=== PATIENT | female | born 1955 | race Caucasian/White ===

== ENCOUNTER 2019-07-09 09:00 | Outpatient (CLI) | payer OTHER, SELFPAY ==
--- NOTE | 2019-07-09 09:03 | MM_ITS ---
WS: [id number] BILATERAL SCREENING DIGITAL MAMMOGRAM WITH CAD HISTORY: SCREENING COMPARISON: 06/09/2018, 04/15/2017, 07/30/2013 and 07/30/2014 Bilateral CC and MLO views submitted. Computer aided detection analyzed. Breast composition: The breasts are heterogeneously dense, which may obscure small masses. No suspici ous masses, microcalcifications or architectural distortion. Dense asymmetric soft tissue in the uppe r outer quadrants of each breast seen on the MLO projections is stable. Benign calcifications. MM/[place] [id number] IMPRESSION: BI-RADS: 2-Benign FOLLOW UP: 1 Year Follow-up
== END 2019-07-09 09:01 | disposition home or self-care (01) ==
LOC: RADSHAW 09:00
PROVIDERS: Family Provider Family Medicine; PCP Nurse Practitioner; Visit Provider Nurse Practitioner
DX: Z12.31 Encounter for screening mammogram for malignant neoplasm of breast (principal)
CPT/HCPCS: 77067

== ENCOUNTER 2020-08-05 15:11 | Outpatient (CLI) | payer OTHER, SELFPAY ==
--- NOTE | 2020-08-05 15:16 | MM_ITS ---
WS: [id number] BILATERAL SCREENING DIGITAL MAMMOGRAM WITH CAD HISTORY: SCREENING COMPARISON: 2019, 07/30/2014 and 04/15/2017 Bilateral CC and MLO views submitted. Computer aided detection analyzed. Breast composition: The breasts are heterogeneously dense, which may obscure small masses. No suspici ous masses, microcalcifications or architectural distortion. Benign stable calcifications. MM/[place] [id number] IMPRESSION: BI-RADS: 2-Benign FOLLOW UP: 1 Year Follow-up
--- NOTE | 2020-08-05 16:05 | XR_ITS ---
WS: [id number] SCREENING DEXA SCAN [employer] CLINICAL INFORMATION: AGE-RELATED OSTEOPOROSIS WITHOUT CURRENT PATHOLOGICAL FRACTU COMPARISON: 2019 FINDINGS: The L1-L4 bone mineral density measures 0.984 g/cm2. This corresponds to a T score score of -1.6 and Z score of 0.1. Left femoral neck bone mineral density measures 0.872 g/cm2. This corresponds to a T score of -1.1 an d Z score of 0.2. Right femoral neck bone mineral density measures 0.865 g/cm2. This corresponds to a T score -1.1of an d Z score of 0.2. Mean femoral neck bone mineral density measures 0.868 g/cm2. This corresponds to a T score of -1.1 an d Z score of 0.2. XR/XR DEXA axial skeleton* [id number] IMPRESSION: Osteopenia Patient's FRAX calculated 10 year probability for major osteoporotic fracture i s 15.8 % and osteoporotic hip fracture is 2.4%.
== END 2020-08-05 15:12 | disposition home or self-care (01) ==
LOC: RADSHAW 15:15
PROVIDERS: PCP Nurse Practitioner; Visit Provider Nurse Practitioner
DX: Z12.31 Encounter for screening mammogram for malignant neoplasm of breast (principal); M81.0 Age-related osteoporosis without current pathological fracture; M85.89 Other specified disorders of bone density and structure, multiple sites
CPT/HCPCS: 77067; 77080

== ENCOUNTER 2021-08-31 13:27 | Outpatient (CLI) | payer MEDICARE, OTHER, SELFPAY ==
--- NOTE | 2021-08-31 13:37 | MM_ITS ---
WS: [id number] BILATERAL 3D TOMOSYNTHESIS DIGITAL SCREENING MAMMOGRAPHY WITH CAD CLINICAL INFORMATION: SCREENING HISTORY: Screening mammogram. No current complaints. COMPARISON: August 05, 2020 TECHNIQUE: Bilateral CC and MLO views. FINDINGS: The breasts are composed of heterogeneous fibroglandular density tissue, which can limit the detectio n of small underlying mass lesions. Punctate and lucent centered calcifications. No suspicious mass, asymmetry, calcifications, or architectural distortion. No evidence of malignancy. MM/[place] [id number] IMPRESSION: BI-RADS: 2-Benign FOLLOW UP: 1 Year Follow-up Recommend return to annual screening mammography.
== END 2021-08-31 13:28 | disposition home or self-care (01) ==
PROVIDERS: PCP Nurse Practitioner; Visit Provider Nurse Practitioner
DX: Z12.31 Encounter for screening mammogram for malignant neoplasm of breast (principal)
CPT/HCPCS: 77063; 77067

== ENCOUNTER 2022-09-02 07:29 | Outpatient (CLI) | payer MEDICARE, OTHER, SELFPAY ==
--- NOTE | 2022-09-02 07:44 | MM_ITS ---
WS: [id number] BILATERAL SCREENING DIGITAL TOMOSYNTHESIS MAMMOGRAM WITH CAD HISTORY: SCREENING COMPARISON: 08/31/2021, 08/05/2020 and 07/09/2019 Bilateral CC and MLO views with tomosynthesis and synthetic mammography submitted. Computer aided det ection analyzed. Breast composition: The breasts are heterogeneously dense, which may obscure small masses. No suspici ous masses, microcalcifications or architectural distortion. Focal asymmetry 12:00 posterior RIGHT br east is similar to multiple prior exams. Benign calcifications LEFT breast. MM/[place] [id number] IMPRESSION: BI-RADS: 2-Benign FOLLOW UP: 1 Year Follow-up
== END 2022-09-02 07:30 | disposition home or self-care (01) ==
LOC: RAD 07:33
PROVIDERS: PCP Nurse Practitioner; Visit Provider Nurse Practitioner
DX: Z12.31 Encounter for screening mammogram for malignant neoplasm of breast (principal)
CPT/HCPCS: 77063; 77067

== ENCOUNTER 2022-10-14 14:16 | Outpatient (CLI) | payer MEDICARE, OTHER, SELFPAY ==
--- NOTE | 2022-10-14 14:24 | XR_ITS ---
WS: [id number] SCREENING DEXA SCAN [employer] CLINICAL INFORMATION: ASYMPTOMATIC MENOPAUSAL STATE COMPARISON: 2020 FINDINGS: The L1-L4 bone mineral density measures 0.966 g/cm2. This corresponds to a T score score of -1.8 and Z score of 0.0. Left femoral neck bone mineral density measures 0.880 g/cm2. This corresponds to a T score of -1.0 an d Z score of 0.4. Right femoral neck bone mineral density measures 0.855 g/cm2. This corresponds to a T score -1.2of an d Z score of 0.2. Mean femoral neck bone mineral density measures 0.867 g/cm2. This corresponds to a T score of -1.1 an d Z score of 0.3. XR/XR DEXA axial skeleton* [id number] IMPRESSION: Osteopenia lumbar spine. Osteopenia femoral necks. Patient's FRAX calculated 10 year probability for major osteoporotic fracture i s 15.8 % and osteoporotic hip fracture is 2.2%. Since 2020 examination: Bone mineral density in the lumbar spine has decreased -1.8% Bone mineral density in the femoral necks has decreased -0.1%
== END 2022-10-14 14:17 | disposition home or self-care (01) ==
LOC: RAD 14:17
PROVIDERS: PCP Nurse Practitioner; Visit Provider Nurse Practitioner
DX: Z13.820 Encounter for screening for osteoporosis (principal); Z78.0 Asymptomatic menopausal state; M85.89 Other specified disorders of bone density and structure, multiple sites
CPT/HCPCS: 77080

== ENCOUNTER 2023-09-05 10:33 | Outpatient (CLI) | payer MEDICARE, OTHER, SELFPAY ==
--- NOTE | 2023-09-05 11:23 | MM_ITS ---
WS: [id number] SCREENING DIGITAL BREAST TOMOSYNTHESIS MAMMOGRAM WITH CAD HISTORY: SCREENING COMPARISON: 09/02/2022, 08/31/2021 and 07/09/2019 Bilateral CC and MLO with tomosynthesis and synthetic mammography submitted. Computer aided detection analyzed. Breast composition: The breasts are heterogeneously dense, which may obscure small masses. Increasing asymmetry in the posterior central RIGHT breast seen only on the CC projection. This may be superimp osed fibroglandular soft tissue. Benign calcifications LEFT breast. MM/[place] [id number] IMPRESSION: BI-RADS: 0-Incomplete: Need additional imaging evaluation FOLLOW UP: Need Additional Imaging RIGHT breast: Spot compression views (CC ). True ML. Ultrasound to follow if ab normality persists.
== END 2023-09-05 10:34 | disposition home or self-care (01) ==
LOC: RAD 10:33
PROVIDERS: PCP Nurse Practitioner; Visit Provider Nurse Practitioner
DX: Z12.31 Encounter for screening mammogram for malignant neoplasm of breast (principal); R92.30 Dense breasts, unspecified
CPT/HCPCS: 77063; 77067

== ENCOUNTER 2023-09-27 13:06 | Outpatient (CLI) | payer MEDICARE, OTHER, SELFPAY ==
--- NOTE | 2023-09-27 13:17 | MM_ITS ---
WS: [id number] ADDITIONAL VIEWS RIGHT MAMMOGRAM WITH DIGITAL BREAST TOMOSYNTHESIS. RIGHT BREAST ULTRASOUND HISTORY: ABNORMAL MAMMO COMPARISON: 09/05/2023, 09/02/2022 and 08/31/2021 RIGHT MAMMOGRAM: Spot compression views and true ML with digital breast tomosynthesis and SM. Asymmetry persists in the posterior RIGHT breast against the chest wall but appears less masslike. Th ere is focal asymmetry towards the upper portion of the breast. This area will be further evaluated b y ultrasound. No suspicious masses. RIGHT BREAST ULTRASOUND 2-D and color Doppler imaging submitted. There is a small cyst at 12:00, 1 cm from the nipple measuring 7 x 6 x 4 mm. No suspicious mass or sh adowing. MM/[place] [id number] IMPRESSION: BI-RADS: 2-Benign FOLLOW UP: 1 Year Follow-up Return to annual screening mammography.
== END 2023-09-27 13:07 | disposition home or self-care (01) ==
LOC: RAD 13:07
PROVIDERS: PCP Nurse Practitioner; Visit Provider Nurse Practitioner Family
DX: R92.8 Other abnormal and inconclusive findings on diagnostic imaging of breast (principal); N60.01 Solitary cyst of right breast
CPT/HCPCS: 76642; 77061; G0279

== ENCOUNTER → 2024-05-30 09:03 | Outpatient (BNVA) | payer MEDICARE, OTHER, SELFPAY | PROVIDERS: PCP Nurse Practitioner; Visit Provider Podiatrist Foot & Ankle Surgery | DX: M79.672 Pain in left foot; M21.612 Bunion of left foot | CPT/HCPCS: 73630; 99204 ==

== ENCOUNTER 2024-06-29 05:52 | Day surgery (SDC) | payer MEDICARE, OTHER, SELFPAY ==
[2024-06-29] VITALS (11 sets, daily range): BP systolic 115–171; BP diastolic 73–86; PULSE 60–89; RESP 16–18; TEMP 36.1–36.2; O2SAT 95–100; BMI 21.4
--- NOTE | 2024-06-29 06:14 | P.OP_ITS ---
Operative Report Date of procedure: June 29, 2024 Pre-op diagnosis: Bunion, left M21.612 Post-op diagnosis: Bunion, left M21.612 Procedure done: Left first metatarsal phalangeal joint fusion. CPT code 87253 Implants: 3-0 Vicryl, 4-0 Vicryl, 4 nylon, [place] first MTP plate with 2.7 millimeter screws distally and 3.5 millimeter screws proximally Surgeon: Jairo Salmeron DPM Estimated blood loss: 2 mL 38 IV fluids: See intraoperative documentation Urine output: See intraoperative documentation Complications: None Brief History: 68-year-old female with a history of left foot bunion presenting with persistent foot pain impacting her quality of life and activity level. The bunion and associated deformities, including a Tailor's bunion and hammer toe, have been present for five years and are worsening. The primary considerations include surgical interventions to correct the structural deformities and alleviate pain. The symptoms and deformities indicate potential surgical options, such as the Lapidus bunionectomy or a first metatarsophalangeal joint fusion, each carrying distinct therapeutic outcomes. 1. Bunion Left Foot The discussion included a detailed review of surgical options to address the severe bunion deformity. The Lapidus procedure was suggested due to its ability to correct severe deformities by realigning and fusing the metatarsal joint, possibly incorporating titanium hardware. Alternatively, a fusion of the first metatarsophalangeal joint was considered for direct correction and pain mitigation, albeit resulting in limited mobility at that joint. The patient was advised to weigh the benefits and recovery timelines of both options. 2. Bunionette of left foot M21.622 The significance of the Tailor's bunion as part of the comprehensive surgical correction was acknowledged. It was suggested to include this in any planned surgical intervention to ensure complete alignment and pain relief. 3. Other hammer toe(s) (acquired), left foot M20.42 Considering the hammer toe deformity, the patient may benefit from a concurrent corrective procedure if opting for surgical intervention on the bunion. X-ray left foot 3 view hallux noted to be an abducted position. Tibial sesamoid position: 5. 1 ? 2 IM angle is 18 degrees. Hallux abductus angle is 40 degrees. Metatarsal adductus angle is 2 degrees. Sieberg index of 2 mm. Continue with supportive appropriate shoewear, patient will continue with anti- inflammatories and activity modifications, she is wishing to schedule bunionectomy discussed Lapidus versus arthrodesis she will is more appealing towards arthrodesis would like to have this done next month, scheduled for 06/29/2024 I reviewed at length with the patient, the risks, potential complications, benefits, alternatives, expectations, and typical outcomes associated with the surgery. The risks and potential complications were explained in detail, including but not limited to infection, wound dehiscence or soft tissue complications, bleeding and hematoma, chronic edema, neuritis or nerve damage producing numbness or chronic pain, CRPS, failure to relieve pain or worsening pain, thick / painful / unsightly scar, limited motion / stiffness, malposition, delayed union, malunion, or nonunion, fracture, reaction to implants, anesthetic complications, venous thromboembolism, and deformity recurrence. I discussed the notion of no regrets with the patient as it pertains to complications and outcomes. The patient seemed to understand the nature of the proposed care and required convalescence. They asked appropriate questions, answered to their satisfaction. They are aware no guarantees can be made as to a satisfactory outcome and they understand there may be other possible unforeseen complications or outcomes not listed here that will be treated accordingly if they arise. There were no written or implied guarantees given to the patient. They gave informed consent to proceed.The patient's primary concern is a progressive and painful bunion with associated deformities that have become problematic. After careful evaluation, two primary surgical strategies were proposed: the Lapidus procedure and joint fusion. The Lapidus procedure offers correction by fusion and alignment but entails a significant recovery period. Joint fusion, while less invasive and with a quicker recovery, results in a permanently fused joint. The decision hinges on the patient's lifestyle needs and readiness for post-operative limitations. The overall goal is to enhance the patient's functional ability and eliminate chronic pain throug h precise surgical intervention. The expected outcome is significant pain reduction, improved quality of life, and the capability to wear regular footwear without discomfort. Procedure: Under mild sedation the patient was brought to the operating room and remained on the gurney in supine position. A timeout was performed. Anesthesia was then administered by the anesthesia service. Local anesthesia was injected by myself consisting of 20 cc of 0.5% Marcaine plain in a Stack block fashion with an additional 20 cc of Exparel subcutaneously at the operative site in a grid like fashion. Well-padded pneumatic tourniquet applied to the left ankle. Left lower extremity was scrubbed, prepped and draped utilizing normal aseptic technique, left foot and ankle were then exanguinated with an Esmarch bandage and tourniquet inflated to 250 mmHg. Attention was directed to the left bunion deformity where a dorsal medial incision was made medial and parallel to the extensor hallucis longus tendon of the left foot through skin with a #15 blade with dissection carried down through subcutaneous tissue to the layer periosteum utilizing sharp and blunt technique. Care was taken to retract and preserve neurovascular and tendinous structures. All bleeders were ligated and cauterized as necessary. Dorsal periosteal and capsular incision was performed in the base of the proximal phalanx and head of the first metatarsal left foot were freed from their soft tissue and capsular attachments. The first metatarsal phalangeal joint was prepped for arthrodesis with cone and cup reamers, rongeur contouring bone to restore normal anatomy and allow plate fixation, saline flush followed by fenestrating drill bit and positioning of the bunion deformity to be reduced, the first metatarsal phalange joint was temporally fixated and slight valgus, neutral in the frontal plane and slight dorsiflexion as optimal arthrodesis position. This was then fixated with a dorsal locking plate by Reji Manning with 2.7 mm locking screws x 3 distally and 3.5 millimeter screws proximally with excellent bony apposition and compression noted. 1 mL of DBM packed around the arthrodesis site. The incision was irrigated with saline solution. AP, oblique and lateral view confirmed excellent placement of hardware not violating adjacent joints and excellent positioning of the first MPJ fusion site in the AP, oblique and lateral view. The incision was irrigated once again with saline solution and closed in a layered fashion. Periosteum reapproximated with 3-0 Vicryl subcutaneous tissue with 4-0 Vicryl and skin with nylon. Incision was then dressed with Xeroform, sterile 4 x 4 gauze, Kerlix followed by application of well-padded multilayer compressive posterior splint to the left lower extremity with ankle joint neutral position. Tourniquet was then deflated and a prompt hyperemic response is noted to the distal digits of the left foot. Patient tolerated the procedure and anesthesia well and was transferred to the PACU with vital signs stable and vascular status intact. Following a period of postoperative monitoring she will be discharged home without home care instructions and scheduled follow-up was advised to be nonweightbearing, elevate her left foot and begin taking 81 mg aspirin once daily beginning the morning after surgery to help potentially reduce risks of deep vein thrombosis she is also given my cell phone number to contact with any postoperative questions or concerns.
--- NOTE | 2024-06-29 06:14 | W.PM.OPSUD ---
Surgery/Procedure H&P Update DATE OF PROCEDURE: June 29, 2024 DATE H&P PERFORMED: 05/30/24 H&P UPDATE INFORMATION: I have reviewed H&P completed within last 30 days, I have examined patient prior to procedure, No changes to prior documentation and H&P is in [facility] EMR on date indicated PREOP DIAGNOSIS: Left bunion PLANNED PROCEDURE: Operation Date: 06/29/24 07:00 Proposed Procedures p first metatarsal phalangeal joint fusion(Left) - Jairo Salmeron DPM
[2024-06-29] MEDS: sodium chloride 0.9% 1,000 ML 30 ML IV (06:16)
[2024-06-29] MEDS: CELEcoxib 200 mg Capsule 400 MG PO (06:17)
[2024-06-29] MEDS: gabapentin 300 mg Capsule PO (06:18)
--- NOTE | 2024-06-29 06:50 | ANES.PREANE2 ---
Pre-Anesthetic Assessment Height/Weight: Height 1.65 m Weight 58.513 kg Temp Pulse Resp BP Pulse Ox O2 Del Method 97.2 F L 60 17 171/80 98 Room Air 06/29/24 06:07 06/29/24 06:07 06/29/24 06:07 06/29/24 06:07 06/29/24 06:07 06/29/24 06:07 Preop Diagnosis: Left bunion Operation Date: 06/29/24 07:00 Proposed Procedures p first metatarsal phalangeal joint fusion(Left) - Jairo Salmeron DPM Familial anesthetic complications: None Was Beta Sina taken within 24 hours: N/A Was Clonidine taken within 24 hours: N/A Last intake: Intake Last Liquid Date 06/28/24 Last Liquid Time 20:00 Last Solid Date 06/28/24 Last Solid Time 14:30 Social No alcohol and No tobacco Exam alert, oriented x 3, clear to auscultation bilaterally and regular rate & rhythm Airway Mallampati: Class I Dentition: full Anesthetic Plan ASA status: 1 Anesthesia: MAC Risk of > 500 ml blood loss (7ml/kg in children): No Medications/Allergies Home Medications ?Medication ?Instructions ?Recorded ?Confirmed ?Last Taken ?Type calcium 500 mg (as 1 tab PO DAILY 06/28/24 06/29/24 06/28/24 History carbonate)-vitamin D3 10 mcg (400 unit) tablet (Calcium 500 + D) coenzyme Q10 50 mg capsule (Co 50 mg PO DAILY 06/28/24 06/28/24 06/25/24 History Q-10) glucosamine sulf dipot 1 cap PO DAILY 06/28/24 06/29/24 06/28/24 History chlr,msm,chond 550 mg-C 30 mg-jose ramon 1 mg capsule (Glucosamine Chondroitin) multivitamin 1 tab PO DAILY 06/28/24 06/29/24 06/28/24 History red yeast rice 600 mg capsule 600 mg PO DAILY 06/28/24 06/29/24 06/28/24 History vitamin K2 40 mcg tablet 40 mcg PO DAILY 06/28/24 06/29/24 06/28/24 History hydrocodone 10 mg-acetaminophen 1 tab PO Q6H PRN pain 7 days #28 06/29/24 Unknown Rx 325 mg tablet tabs tranexamic acid 650 mg tablet 650 mg PO BID #1 tab 06/29/24 Unknown Rx Allergies Allergy/AdvReac Type Severity Reaction Status Date / Time Penicillins Allergy rash Verified 05/30/24 09:08 Sulfa (Sulfonamide Allergy rash Verified 05/30/24 09:08 Antibiotics) Current Medications Generic Name Dose Route Start Last Admin Trade Name Freq PRN Reason Stop Dose Admin Sodium Chloride 1,000 mls @ 30 mls/hr 06/29/24 06:00 06/29/24 06:16 Sodium Chloride 0.9% IV 06/30/24 05:59 30 mls/hr .Q24H OMAR Administration PFSH Anesthesia Social History (Updated 05/30/24 @ 09:10 by Cm Calzada LPN) Smoking and tobacco/nicotine status: never used tobacco/nicotine Alcohol intake: never Substance/Drug Use: never Data Anesthesia Cardiac Studies: No Data to Display
[2024-06-29] MEDS: clindamycin 600 MG/50 ML PREMIX 100 MG IV (06:56)
[2024-06-29] MEDS: BUPivacaine liposome 13.3 mg/mL SDV 20 mL 266 MG INFILTRATI (07:20)
[2024-06-29] MEDS: BUPivacaine 0.5% INJ 30 mL XX (07:21)
--- NOTE | 2024-06-29 09:25 | ANE.PACU2 ---
Inpatient post-anesthesia follow up: Airway intact: Yes Vital signs: Temperature 97.2 F Pulse Rate 73 Respiratory Rate 17 Blood Pressure 132/75 Pulse Oximetry 98 Oxygen Delivery Me thod Room Air Oxygen Flow Rate 0 Fraction of Inspir ed Oxygen Hydration adequate: Yes Nausea and vomiting: No Pain level: 1 Mental status: Baseline
== END 2024-06-29 09:25 | disposition home or self-care (01) ==
PROVIDERS: Visit Provider Podiatrist Foot & Ankle Surgery
PROC: (CPT 28750; principal; 2024-06-29 07:00)
DX: M21.612 Bunion of left foot (principal); M21.622 Bunionette of left foot; M20.42 Other hammer toe(s) (acquired), left foot
CPT/HCPCS: 28750; 73620; 76000; C1713; C9290; J1100; J2405; J2704; J3010; J3490; J7030

== ENCOUNTER → 2024-07-12 11:22 | Outpatient (BNVA) | payer MEDICARE, OTHER, SELFPAY | PROVIDERS: Visit Provider Podiatrist Foot & Ankle Surgery | DX: Z98.890 Other specified postprocedural states (principal) | CPT/HCPCS: 73630 ==

== ENCOUNTER 2024-07-12 11:57 | Outpatient (CLI) | payer MEDICARE, OTHER, SELFPAY | END 2024-07-12 11:58 | disposition home or self-care (01) | LOC: SPT 11:58 | PROVIDERS: Visit Provider Podiatrist Foot & Ankle Surgery | DX: Z47.89 Encounter for other orthopedic aftercare (principal); Z98.890 Other specified postprocedural states | CPT/HCPCS: 97760; 99024; L4361 ==

== ENCOUNTER → 2024-08-09 13:38 | Outpatient (BNVA) | payer MEDICARE, OTHER, SELFPAY | PROVIDERS: Visit Provider Podiatrist Foot & Ankle Surgery | DX: Z98.890 Other specified postprocedural states (principal) | CPT/HCPCS: 73630; 99024 ==

== ENCOUNTER → 2024-09-13 13:38 | Outpatient (BNVA) | payer MEDICARE, OTHER, SELFPAY | PROVIDERS: Visit Provider Podiatrist Foot & Ankle Surgery | DX: Z98.890 Other specified postprocedural states (principal) | CPT/HCPCS: 73630; 99024 ==

== ENCOUNTER 2024-09-28 14:05 | Outpatient (CLI) | payer MEDICARE, OTHER, SELFPAY ==
--- NOTE | 2024-09-28 14:10 | MM_ITS ---
WS: [id number] BILATERAL 3D TOMOSYNTHESIS DIGITAL SCREENING MAMMOGRAPHY WITH CAD CLINICAL INFORMATION: SCREENING HISTORY: Screening mammogram. No current complaints. COMPARISON: 2023 TECHNIQUE: Bilateral CC and MLO views. FINDINGS: The breasts are composed of heterogeneous fibroglandular density tissue, which can limit the detection of small underlying mass lesions. No suspicious mass, asymmetry, calcifications, or architectural distortion. No evidence of malignancy. Benign calcifications LEFT breast MM/MM scr tomosynthesis [id number] IMPRESSION: DENSITY: The breasts are heterogeneously dense, which may obscure small masses. BI-RADS: 2 - Benign FOLLOW UP: 1 Year Follow-up Recommend return to annual screening mammography.
--- NOTE | 2024-09-28 14:10 | XR_ITS ---
WS: [id number] DEXA (DUAL ENERGY X-RAY ABSORPTIOMETRY) Bone mineral density was performed using a [employer] machine. HISTORY: ASYMPTOMATIC MENOPAUSAL STATE COMPARISON: 10/14/2022 Lumbar spine BMD (L1-L4): 0.950 g/cm2 T score: -1.9 Z score: -0.1 Total hip BMD: Left: 0.877 g/cm2. T score: -1.0 Z score: 0.5 Right: 0.841 g/cm2. T score: -1.3 Z score: 0.2 10 year probability of a major osteoporotic fracture is 16.3%. Compared to the prior study from 10/14/2022. Lumbar spine bone mineral density has decreased by 1.7%. Bilateral hips bone mineral density has decreased by 0.9%. XR/XR DEXA axial skeleton* [id number] IMPRESSION: OSTEOPENIA based upon the WHO classification for females. No significant change in bone mineral density within the hips or lumbar spine s sb the prior study.
== END 2024-09-28 14:06 | disposition home or self-care (01) ==
PROVIDERS: PCP Student in an Organized Health Care Education/Training Program; Visit Provider Student in an Organized Health Care Education/Training Program
DX: Z12.31 Encounter for screening mammogram for malignant neoplasm of breast (principal); Z78.0 Asymptomatic menopausal state; M85.80 Other specified disorders of bone density and structure, unspecified site; R92.333 Mammographic heterogeneous density, bilateral breasts; R92.1 Mammographic calcification found on diagnostic imaging of breast
CPT/HCPCS: 77063; 77067; 77080